=== PATIENT | male | born 1980 | race Two or more races ===

== ENCOUNTER 2017-03-04 14:05 | Emergency (ER) | payer SELFPAY ==
[~2017-03-04] VITALS: Ht 170.2 cm; Wt 81.6 kg
[2017-03-04] MEDS ORDERED: KETOROLAC TROMETH 60MG/2ML VIAL IM ONE (16:00)
[2017-03-04] MEDS ORDERED: cefTRIAXone SOD 1,000 MG VL IM ONE (16:00)
[2017-03-04] MEDS ORDERED: TETANUS-DIPTH-ACEL PERTUSSIS 0.5ML SYRG IM ONE (16:00)
[2017-03-04] MEDS ORDERED: LIDOCAINE 1% HCL (LOCAL ANESTH.) INJ 20ML MDV IJ ONE (16:00)
[2017-03-04 18:57] VITALS: BP 107/50
== END 2017-03-04 19:40 | disposition home or self-care (01) ==
LOC: ER 14:22
DX: S61.511A Laceration without foreign body of right wrist, initial encounter (principal); Z23 Encounter for immunization; W26.8XXA Contact with other sharp object(s), not elsewhere classified, initial encounter; Y93.89 Activity, other specified; Y99.8 Other external cause status; Y92.89 Other specified places as the place of occurrence of the external cause
CPT/HCPCS: 12034; 90471; 90715; 96372; 99284; J0696; J1885; J2001